=== PATIENT | male | born 1950 | race Caucasian/White ===

== ENCOUNTER → 2019-10-05 11:00 | Outpatient (BNVA) | payer MEDICARE, OTHER, SELFPAY | PROVIDERS: PCP Nurse Practitioner Family; Visit Provider Nurse Practitioner Family | DX: Z00.00 Encounter for general adult medical examination without abnormal findings (principal); I10 Essential (primary) hypertension | CPT/HCPCS: 80053; 80061; 82306; 82607; 85025 ==

== ENCOUNTER → 2020-01-04 11:33 | Outpatient (BNVA) | payer MEDICARE, OTHER, SELFPAY | PROVIDERS: PCP Nurse Practitioner Family; Visit Provider Nurse Practitioner Family | DX: L03.312 Cellulitis of back [any part except buttock and flank] (principal); W57.XXXA Bitten or stung by nonvenomous insect and other nonvenomous arthropods, initial encounter | CPT/HCPCS: 80053; 85025; 86618; 86666; 86757 ==

== ENCOUNTER → 2020-05-24 15:01 | Outpatient (BNVA) | payer MEDICARE, OTHER, SELFPAY | PROVIDERS: PCP Nurse Practitioner Family; Visit Provider Nurse Practitioner Family | DX: I10 Essential (primary) hypertension (principal); R53.83 Other fatigue; R53.82 Chronic fatigue, unspecified; Z12.5 Encounter for screening for malignant neoplasm of prostate; Z79.899 Other long term (current) drug therapy | CPT/HCPCS: 80053; 80061; 82306; 82607; 84443; 85025; G0103 ==

== ENCOUNTER → 2021-03-28 09:20 | Outpatient (BNVA) | payer MEDICARE, OTHER, SELFPAY | PROVIDERS: PCP Nurse Practitioner Family; Visit Provider Nurse Practitioner Family | DX: I10 Essential (primary) hypertension (principal); R53.82 Chronic fatigue, unspecified; Z12.5 Encounter for screening for malignant neoplasm of prostate | CPT/HCPCS: 80053; 80061; 82306; 82607; 84443; 85025 ==

== ENCOUNTER → 2021-12-14 11:50 | Outpatient (BNVA) | payer MEDICARE, OTHER, SELFPAY | PROVIDERS: PCP Nurse Practitioner Family; Visit Provider Family Medicine | DX: I10 Essential (primary) hypertension (principal); R53.83 Other fatigue; Z12.5 Encounter for screening for malignant neoplasm of prostate; Z79.899 Other long term (current) drug therapy; R53.82 Chronic fatigue, unspecified; Z00.00 Encounter for general adult medical examination without abnormal findings | CPT/HCPCS: 80053; 80061; 82306; 84443; 85025; G0103 ==

== ENCOUNTER 2023-04-19 13:03 | Emergency (ER) | payer MEDICARE, OTHER, SELFPAY ==
[2023-04-19 13:12] VITALS: BP 193/76; PULSE 83; RESP 18; TEMP 37; O2SAT 96; BMI 27.8
--- NOTE | 2023-04-19 13:24 | CTR_ITS ---
PROCEDURE INFORMATION: Exam: CT Cervical Spine Without Contrast Exam date and time: 04/19/2023 2:22 PM Age: 72 years old Clinical indication: Injury or trauma; Fall; Blunt trauma TECHNIQUE: Imaging protocol: Computed tomography of the cervical spine without contrast. Radiation optimization: All CT scans at this facility use at least one of these dose optimization techniques: automated exposure control; mA and/or kV adjustment per patient size (includes targeted exams where dose is matched to clinical indication); or iterative reconstruction. REPORTING DATA: Count of CT and Cardiac NM exams in prior 12 months: This patient has received 0 known CTs and 0 known cardiac nuclear medicine studies in the 12 months prior to the current study. COMPARISON: No relevant prior studies available. RADIATION DOSE METRICS: Total DLP (mGy-cm): 528.1 FINDINGS: Bones/joints: No acute fracture. Normal alignment. 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 Additional multilevel cervical spine degenerative changes with facet arthrosis contributing to moderate right osseous neural foraminal narrowing at C3-C4 and bilaterally at C4-C5. Lungs: Right apical calcified granuloma. Lung apices are otherwise clear. Thyroid: Subcentimeter left thyroid nodule requires no dedicated imaging follow-up. Vasculature: Mild atherosclerotic calcification. Soft tissues: Unremarkable. CT/CT cervical spin wo con* [id number] IMPRESSION: 1. No acute fracture or traumatic listhesis. 2. 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 COMMENTS: Consistent with the [employer]'s Incidental Findings Committee white paper (J Am Lubna Radiol 2015): In patients aged 35 years and older with an incidental thyroid nodule equal to or greater than 1.[address], MRI or extrathyroidal US, further evaluation with dedicated thyroid US is recommended for patients with normal life expectancy and without comorbidities. For smaller nodules without suspicious features, no further evaluation or follow up is recommended.
--- NOTE | 2023-04-19 13:24 | CTR_ITS ---
PROCEDURE INFORMATION: Exam: CT Chest With Contrast; Diagnostic Exam date and time: 04/19/2023 2:34 PM Age: 72 years old Clinical indication: Injury or trauma; Fall; Generalized; Blunt trauma (contusions or hematomas) TECHNIQUE: Imaging protocol: Diagnostic computed tomography of the chest with contrast. Radiation optimization: All CT scans at this facility use at least one of these dose optimization techniques: automated exposure control; mA and/or kV adjustment per patient size (includes targeted exams where dose is matched to clinical indication); or iterative reconstruction. Contrast material: OMNI 350; Contrast volume: 100 ml; Contrast route: INTRAVENOUS (IV); REPORTING DATA: Count of CT and Cardiac NM exams in prior 12 months: This patient has received 0 known CTs and 0 known cardiac nuclear medicine studies in the 12 months prior to the current study. COMPARISON: CT cervical spin wo con* [id number] 04/19/2023 2:22 PM RADIATION DOSE METRICS: Total DLP (mGy-cm): 1368.48 FINDINGS: Trachea: Expiratory phase imaging as evidenced by anterior bowing of the posterior tracheal membrane. Lungs: Dependent atelectasis. No consolidation. No mass. There is a 4 mm right middle lobe nodule on axial image 36 of series 4. Pleural spaces: Unremarkable. No pneumothorax. No pleural effusion. Heart: Unremarkable. No cardiomegaly. No pericardial effusion. Lymph nodes: Unremarkable. No enlarged lymph nodes. Vasculature: Mild systemic atherosclerotic calcification without aortic aneurysm. Diaphragm: Small hiatal hernia. Platelike left diaphragmatic hyperdensity may represent calcification or postsurgical change. Bones/joints: Minimally displaced acute right anterolateral 6th rib fracture. Degenerative changes along the spine. Soft tissues: Unremarkable. months. (Reference: Mumtaz) REFERENCES: Mumtaz Cody et al. Guidelines for Management of Incidental Pulmonary Nodules Detected on CT Images: From the Fleischner Society 2017. Radiology. 2017;284(1):228-243. PROCEDURE INFORMATION: Exam: CT Abdomen And Pelvis With Contrast Exam date and time: 04/19/2023 2:34 PM Age: 72 years old Clinical indication: Injury or trauma; Fall; Generalized; Blunt trauma (contusions or hematomas) TECHNIQUE: Imaging protocol: Computed tomography of the abdomen and pelvis with contrast. Radiation optimization: All CT scans at this facility use at least one of these dose optimization techniques: automated exposure control; mA and/or kV adjustment per patient size (includes targeted exams where dose is matched to clinical indication); or iterative reconstruction. Contrast material: OMNI 350; Contrast volume: 100 ml; Contrast route: INTRAVENOUS (IV); REPORTING DATA: Count of CT and Cardiac NM exams in prior 12 months: This patient has received 0 known CTs and 0 known cardiac nuclear medicine studies in the 12 months prior to the current study. COMPARISON: No relevant prior studies available. RADIATION DOSE METRICS: Total DLP (mGy-cm): 1368.48 FINDINGS: Liver: There is a 2.3 cm right liver laceration on axial image 24 of series 6. Subtle ill-defined heterogeneous hypoattenuating area within the right liver measuring 4.5 x 3.2 cm on axial image 21 of series 6 suggestive of developing hematoma. Gallbladder and bile ducts: Normal. No calcified stones. No ductal dilation. Pancreas: Normal without ductal dilatation. Spleen: Normal. Adrenal glands: Abnormal thickening of the right adrenal gland measuring approximately 3 cm in thickness with decreased density and mild surrounding blood products. Minimal residual normal-appearing adrenal gland present medially. Normal left adrenal gland. Kidneys and ureters: Normal. No hydronephrosis. Stomach and bowel: No dilatation. No mucosal thickening. Appendix: Normal. Intraperitoneal space: No free air or well organized fluid collection. Vasculature: Mild aortoiliac atherosclerotic calcification without abdominal aortic aneurysm. Lymph nodes: Unremarkable. No enlarged lymph nodes. Urinary bladder: Urinary bladder is unremarkable. Reproductive: Enlarged prostate gland measures 5.7 cm in transverse dimension and shows median lobe hypertrophy. Bones/joints: No acute fracture. Degenerative changes along the spine and sacroiliac joints. Soft tissues: Small to moderate bilateral fat containing inguinal hernias. CT/CT chest abdpel w/*[id number] IMPRESSION: 1. Minimally displaced acute right 6th rib fracture. 2. 4 mm right middle lobe pulmonary nodule. For patients at low risk (minimal or absent history of smoking and of other known risk factors), no routine follow-up is indicated. For patients at high risk (history of smoking or of other known risk factors), consider optional CT Chest at 12 IMPRESSION: 1. Grade 2 right liver injury with laceration and hematoma as above. 2. Right adrenal gland hematoma with mild surrounding blood products. Minimal residual normal appearing adrenal gland medially. 3. Additional chronic and incidental findings as above, to include prostatomegaly.
--- NOTE | 2023-04-19 13:24 | CTR_ITS ---
PROCEDURE INFORMATION: Exam: CT Head Without Contrast Exam date and time: 04/19/2023 2:22 PM Age: 72 years old Clinical indication: Injury or trauma; Fall; Blunt trauma (contusions or hematomas) TECHNIQUE: Imaging protocol: Computed tomography of the head without contrast. Radiation optimization: All CT scans at this facility use at least one of these dose optimization techniques: automated exposure control; mA and/or kV adjustment per patient size (includes targeted exams where dose is matched to clinical indication); or iterative reconstruction. REPORTING DATA: Count of CT and Cardiac NM exams in prior 12 months: This patient has received 0 known CTs and 0 known cardiac nuclear medicine studies in the 12 months prior to the current study. COMPARISON: No relevant prior studies available. RADIATION DOSE METRICS: Total DLP (mGy-cm): 949.4 FINDINGS: Brain: Normal volume for age. No hemorrhage. Unremarkable white matter. No mass effect. Cerebral ventricles: No ventriculomegaly. Paranasal sinuses: Mild pansinus mucosal thickening. No fluid levels. Mastoid air cells: Visualized mastoid air cells are well aerated. Bones/joints: Unremarkable. No acute fracture. Soft tissues: Unremarkable. CT/CT head wo con* [id number] IMPRESSION: 1. No acute intracranial findings. 2. Mild paranasal sinus disease.
--- NOTE | 2023-04-19 13:28 | ED_ITS ---
HPI - Fall General: Chief Complaint: Fall Stated Complaint: fall from ladder Time Seen by Provider: 04/19/23 13:23 Source: patient and family Mode of arrival: ambulatory History of Present Illness: 72-year-old male who was at home he was using a ladder he was found on the deck after having fallen off a ladder he has an abrasion to his forehead he is a very poor memory events he essentially cannot remember anything that aches transpired prior to coming here. Does not really remember anything since he got up this morning. He is aware of where he is at and who is with him some eyewear at the time but other circumstances are lost him at this point. Complaining some mild abdominal discomfort as well. He has abrasion on his forehead and some right- sided rib pain. He denies any pain in the extremities. Has a few abrasions on his left hand. Even with coaching and after having been told what happened he does not recall within a few minutes that he had fallen and that was why his family brought him to the emergency room today. He is not on any anticoagulants. complaint: fall Onset (ago): minute(s) Fall from: from height (distance) (ladder) Fall witnessed: no Place fall occurred: home Loss of consciousness: Unsure Prolonged down time: no Context: tripped/slipped Associated symptoms-after fall: Denies abdominal pain, chest pain or neck pain Review of Systems Const: Denies: fever(s) or chills Card: Denies: chest pain Resp: Denies: dyspnea GI: Denies: abdominal pain : Denies: dysuria, urinary frequency or urinary urgency Musc: Denies: neck pain or back pain Skin/Breast: Denies: rash PFSH ED PFSH: Medical History Hypertension Social History Smoking and tobacco/nicotine status: never used tobacco/nicotine Second hand smoke exposure: No Alcohol intake: never Substance/Drug Use: never Lives independently: Yes Household members: spouse Marital status: service: No Current occupational status: retired Current gender identity: Male Special yung needs: No Agree to transfusion: Yes Physical Exam Const: GENERAL APPEARANCE: cooperative and comfortable ORIENTATION/CONSCIOUSNESS: Yes awake, Yes oriented to person, Yes oriented to place and Yes oriented to time HENMT: COMMON NORMALS: normocephalic and hearing grossly normal bilaterally HEAD & SCALP: normocephalic Eye: OTHER: Superficial abrasion left forehead Resp: COMMON NORMALS: normal respiratory effort, No retractions, No use of accessory muscles and clear to auscultation bilaterally AUSCULTATION: clear to auscultation bilaterally Cardio: COMMON NORMALS: regular rate, regular rhythm and No murmurs present (Cardio) RATE: regular rate RHYTHM: regular rhythm GI: COMMON NORMALS: No hepatosplenomegaly present AUSCULTATION: Yes normoactive bowel sounds PALPATION: Yes Tenderness to palpation present (GI) Details: RUQ and Yes No hepatosplenomegaly present : COMMON NORMALS: Yes no CVA tenderness BLADDER/KIDNEY EXAM: Yes no CVA tenderness Back/Pelvis: COMMON NORMALS: no CVA tenderness Extremity: COMMON NORMALS: capillary refill normal, no clubbing, cyanosis or edema, no calf tenderness and no pedal edema OTHER: Abrasion right hand superficial Neuro: SENSORIUM/ORIENTATION: Yes oriented to person, Yes oriented to place and Yes oriented to time Skin: COMMON NORMALS: no rashes or lesions noted GENERAL SKIN EXAM: no rashes or lesions noted Course Vital Signs: Vital signs: Vital Signs Temperature 98.6 F 04/19/23 13:12 Pulse Rate 84 04/19/23 16:00 Respiratory Rate 16 04/19/23 16:00 Blood Pressure 155/81 04/19/23 16:00 Pulse Oximetry 98 04/19/23 16:00 Oxygen Delivery Me thod Room Air 04/19/23 13:12 MDM - Fall Medical Decision Making Fall with loss of consciousness and memory loss. Patient has no recollection of the events leading up to the fall or since the fall. He repeatedly asks questions regarding orientation and events. CT shows a right sixth rib fracture as ureteral hematoma and a developing liver hematoma with a laceration. We will transfer to trauma [facility] at [facility]. Patient to be transferred ER to ER. Medical Records I reviewed the patient's medical records. Lab Data I reviewed the patient's lab results. 04/19/23 13:54 04/19/23 13:54 Radiology Impressions Cervical Spine CT 04/19/23 13:24 IMPRESSION: 1. No acute fracture or traumatic listhesis. 2. 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 COMMENTS: Consistent with the [employer] [employer]'s Incidental Findings Committee white paper (J Am [employer]na Radiol 2015): In patients aged 35 years and older with an incidental thyroid nodule equal to or greater than 1.[address], MRI or extrathyroidal US, further evaluation with dedicated thyroid US is recommended for patients with normal life expectancy and without comorbidities. For smaller nodules without suspicious features, no further evaluation or follow up is recommended. Chest/Abdomen/Pelvis CT 04/19/23 13:24 IMPRESSION: 1. Minimally displaced acute right 6th rib fracture. 2. 4 mm right middle lobe pulmonary nodule. For patients at low risk (minimal or absent history of smoking and of other known risk factors), no routine follow-up is indicated. For patients at high risk (history of smoking or of other known risk factors), consider optional CT Chest at 12 IMPRESSION: 1. Grade 2 right liver injury with laceration and hematoma as above. 2. Right adrenal gland hematoma with mild surrounding blood products. Minimal residual normal appearing adrenal gland medially. 3. Additional chronic and incidental findings as above, to include prostatomegaly. ADDENDUM: 04/19/23 [id number] THIS REPORT CONTAINS FINDINGS THAT MAY BE CRITICAL TO PATIENT CARE. The findings were verbally communicated via telephone conference with Dr. Sosa at 3:13 PM CDT on 04/19/2023. The findings were acknowledged and understood. During discussion, correction was made to the liver injury grade which is actually grade 3, not grade 2, since there is more than [address] 04/19/23 13:24 IMPRESSION: 1. No acute intracranial findings. 2. Mild paranasal sinus disease. Laboratory Results WBC 14.18 10^3/uL (3.29-11.43) H 04/19/23 13:54 RBC 5.08 10^6/uL (3.85-5.65) 04/19/23 13:54 Hgb 15.20 g/dL (11.27-16.99) 04/19/23 13:54 Hct 45.3 % (37-53) 04/19/23 13:54 MCV 89.2 fl (82-101) 04/19/23 13:54 MCH 29.9 pg (27-33) 04/19/23 13:54 MCHC 33.6 g/dL (30-55) 04/19/23 13:54 RDW 12.8 % (12.1-15.1) 04/19/23 13:54 Plt Count 152 10^3/cmm (157-399) L 04/19/23 13:54 MPV 11.4 fL (7.4-10.4) H 04/19/23 13:54 Neut % (Auto) 73.3 % 04/19/23 13:54 Lymph % (Auto) 18.1 % 04/19/23 13:54 [place] % (Auto) 5.7 % 04/19/23 13:54 Eos % (Auto) 1.8 % 04/19/23 13:54 Baso % (Auto) 0.3 % 04/19/23 13:54 Neut # (Auto) 10.40 10^3/uL (1.8-7.7) H 04/19/23 13:54 Lymph # (Auto) 2.6 10^3/uL (0.8-4.8) 04/19/23 13:54 [place] # (Auto) 0.8 10^3/uL (0.2-0.9) 04/19/23 13:54 Eos # (Auto) 0.3 10^3/uL (0.0-0.8) 04/19/23 13:54 Baso # (Auto) 0.0 10^3/uL (0.0-0.1) 04/19/23 13:54 Nucleated RBC % (auto) 0 % 04/19/23 13:54 Nucleated RBCs # 0.0 /100WBC 04/19/23 13:54 Sodium 135 mmol/L (136-145) L 04/19/23 13:54 Potassium 3.5 mmol/L (3.5-5.1) 04/19/23 13:54 Chloride 98 mmol/L (98-107) 04/19/23 13:54 Carbon Dioxide 24 mmol/L (22-29) 04/19/23 13:54 Anion Gap 16.5 (5-19) 04/19/23 13:54 BUN 10 mg/dL (8-23) 04/19/23 13:54 Creatinine 0.9 mg/dL (0.7-1.2) 04/19/23 13:54 GFR Calculation Not Reportable 04/19/23 13:54 Glucose 180 mg/dL (65-115) H 04/19/23 13:54 Calculated Osmolality 284 mOsm/kg (285-295) L 04/19/23 13:54 Calcium 9.2 mg/dL (8.5-10.5) 04/19/23 13:54 Total Bilirubin 0.5 mg/dL (0.15-1.2) 04/19/23 13:54 AST 184 U/L (0-40) H 04/19/23 13:54 ALT 200 U/L (0-41) H 04/19/23 13:54 Alkaline Phosphatase 77 U/L (40-130) 04/19/23 13:54 Total Protein 7.1 g/dL (6.6-8.7) 04/19/23 13:54 Albumin 4.2 g/dL (3.5-5.2) 04/19/23 13:54 Globulin 2.9 g/dL (1.3-4.6) 04/19/23 13:54 Urine Color Straw (Yellow) 04/19/23 12:25 Urine Appearance Hazy (CLEAR) A 04/19/23 12:25 Urine pH 9 (5-7) H 04/19/23 12:25 Ur Specific [place] 1.020 (1.005-1.030) 04/19/23 12:25 Urine Protein Neg (Negative) 04/19/23 12:25 Urine Glucose (UA) Norm (Normal) 04/19/23 12:25 Urine Ketones Negative (Negative) 04/19/23 12:25 Urine Blood 2+ (Negative) H 04/19/23 12:25 Urine Nitrate Positive (Negative) H 04/19/23 12:25 Urine Bilirubin Neg (Negative) 04/19/23 12:25 Prot Sulfosalicylic Acd Negative (Negative) 04/19/23 12:25 Urine Urobilinogen Norm mg/dL (Negative) 04/19/23 12:25 Ur Leukocyte Esterase Negative (Negative) 04/19/23 12:25 Urine RBC Rare /hpf (0-2) 04/19/23 12:25 Urine WBC 5-10 /hpf (0-5) H 04/19/23 12:25 Ur Squamous Epith Cells None /hpf (0-5) 04/19/23 12:25 Amorphous Sediment 1+ /hpf 04/19/23 12:25 Urine Bacteria 4+ /hpf (NONE) H 04/19/23 12:25 All radiology interpretation(s) finalized by discharge Discharge Plan Discharge Patient Disposition: Xfer Short-Term Hosp Clinical Impression: Liver laceration, closed, Concussion with loss of consciousness, Hematoma of adrenal gland due to trauma, Right rib fracture, Fall Condition: Stable Referrals: Anaya Tong FNP [Primary Care Provider] - Coding Level of Care Code ED Bowling Teacher for Gautam King
[2023-04-19 14:24] LABS: Basophils % 0.3 %; Eosinophils # 0.3 10^3/uL (0.0-0.8); Eosinophils % 1.8 %; Hematocrit 45.3 % (37-53); Lymphocytes # 2.6 10^3/uL (0.8-4.8); Lymphocytes % 18.1 %; Mean Corpuscular HGB Conc 33.6 g/dL (30-55); Mean Corpuscular Hemoglobin 29.9 pg (27-33); Mean Corpuscular Volume 89.2 fl (82-101); Mean Platelet Volume 11.4 fL (7.4-10.4); Monocytes # 0.8 10^3/uL (0.2-0.9); Monocytes % 5.7 %; Neutrophils % 73.3 %; Nucleated Red Blood Cells % 0 %; Platelet Count 152 10^3/cmm (157-399); Red Blood Count 5.08 10^6/uL (3.85-5.65); Red Cell Distribution Width 12.8 % (12.1-15.1); White Blood Count 14.18 10^3/uL (3.29-11.43)
[2023-04-19 14:37] LABS: Alanine Aminotransferase 200 U/L (0-41); Albumin Level 4.2 g/dL (3.5-5.2); Alkaline Phosphatase 77 U/L (40-130); Anion Gap 16.5 (5-19); Aspartate Amino Transferase 184 U/L (0-40); Blood Urea Nitrogen 10 mg/dL (8-23); Calcium 9.2 mg/dL (8.5-10.5); Carbon Dioxide 24 mmol/L (22-29); Chloride 98 mmol/L (98-107); Globulin 2.9 g/dL (1.3-4.6); Glucose 180 mg/dL (65-115); Osmolality Calculated 284 mOsm/kg (285-295); Potassium 3.5 mmol/L (3.5-5.1); Sodium 135 mmol/L (136-145); Total Bilirubin 0.5 mg/dL (0.15-1.2); Total Protein 7.1 g/dL (6.6-8.7)
[2023-04-19] MEDS: iohexol 350 mg/mL 500 mL Btl (per mL) IV (14:39)
[2023-04-19 15:00] VITALS: BP 172/79; PULSE 87; RESP 16; O2SAT 99
[2023-04-19 15:30] VITALS: BP 173/85; PULSE 89; RESP 16; O2SAT 98
[2023-04-19 16:00] VITALS: BP 155/81; PULSE 84; RESP 16; O2SAT 98
[2023-04-19 16:02] LABS: Add Urine Microscopic? YES; Bilirubin Urine Neg (Negative); Blood Urine 2+ (Negative); Glucose Urine UA Norm (Normal); Ketones Urine Negative (Negative); Leukocyte Esterase Urine Negative (Negative); Nitrate Urine Positive (Negative); Protein Urine Neg (Negative); Sulfosalicylic Acid Urine Negative (Negative); Urine Appearance Hazy (CLEAR); Urine Color Straw (Yellow); Urobilinogen Urine Norm (Negative); pH Urine 9 (5-7)
[2023-04-19 16:03] LABS: Add Urine Culture? Yes; Amorphous Sediment Urine 1+ /hpf; Bacteria Urine 4+ /hpf; RBC Urine RARE /hpf (0-2)
[2023-04-19] MEDS: sodium chloride 0.9% 1,000 ML 100 ML IV (16:09)
== END 2023-04-19 17:14 | disposition short-term general hospital (02) ==
PROVIDERS: Emergency Provider Family Medicine; PCP Nurse Practitioner Family
DX: S06.0X9A Concussion with loss of consciousness of unspecified duration, initial encounter (principal); S37.812A Contusion of adrenal gland, initial encounter; S22.31XA Fracture of one rib, right side, initial encounter for closed fracture; S36.115A Moderate laceration of liver, initial encounter; I10 Essential (primary) hypertension; W11.XXXA Fall on and from ladder, initial encounter
CPT/HCPCS: 36415; 70450; 71260; 72125; 74177; 80053; 81001; 85025; 87077; 87086; 87186; 99285; J7030; Q9967

== ENCOUNTER → 2023-04-23 10:29 | Outpatient (BNVA) | payer MEDICARE, OTHER, SELFPAY | PROVIDERS: PCP Nurse Practitioner Family; Visit Provider Nurse Practitioner Family | DX: N39.0 Urinary tract infection, site not specified (principal) | CPT/HCPCS: 81003; 87077; 87086; 87184 ==

== ENCOUNTER 2024-01-30 11:46 | Outpatient (CLI) | payer MEDICARE, OTHER, SELFPAY ==
--- NOTE | 2024-01-30 11:50 | USCV_ITS ---
Homer Guzman Age: 73 Gender: M : 1950 Exam Date: 01/30/2024 12:08 Ordering Phys: Mela OchoaP Technologist: GEETHA [place] [facility] [place]ication: Rt LE Pain HISTORY: Lower extremity pain. PROCEDURES: Venous duplex imaging was performed in only the right lower extremity. The following venous structures were evaluated: common femoral vein, profunda vein, proximal portion of the greater saphenous vein, superficial femoral vein, and the popliteal vein. In addition, the posterior tibial and peroneal trunk were evaluated. Serial compression, augmentation maneuvers, and spectral Doppler flow evaluation were performed. FINDINGS: Age indeterminate DVT in Proximal FV to CFV, near occlusive. The remaining right lower extremity is negative. CONCLUSIONS Age indeterminate right DVT CFV and Sfv. Report called at time of exam. Dr. Sahara Spaulding DO (Electronically Signed) Final Date: 30 January 2024 12:30 S
== END 2024-01-30 11:47 | disposition home or self-care (01) ==
LOC: RAD 11:47
PROVIDERS: PCP Nurse Practitioner Family; Visit Provider Nurse Practitioner Family
DX: I82.411 Acute embolism and thrombosis of right femoral vein (principal)
CPT/HCPCS: 93971

== ENCOUNTER 2024-06-10 10:51 | Outpatient (CLI) | payer MEDICARE, OTHER, SELFPAY ==
--- NOTE | 2024-06-10 10:58 | USCV_ITS ---
Homer Guzman Age: 73 Gender: M : 1950 Exam Date: 06/10/2024 11:08 Ordering Phys: Katlin Smith APN Technologist: R Exam Location: [facility] [place] Indication: HISTORY: DVT. PROCEDURES: Venous duplex imaging was performed in only the right lower extremity. The following venous structures were evaluated: common femoral vein, profunda vein, proximal portion of the greater saphenous vein, superficial femoral vein, and the popliteal vein. In addition, the posterior tibial veins were evaluated. In addition, the posterior tibial and peroneal trunk were evaluated. FINDINGS: No evidence of DVT seen in any vessel visualized at this time. CONCLUSIONS No evidence of right lower extremity DVT. Dinh Walker MD (Electronically Signed) Final Date: 10 June 2024 14:11 S
== END 2024-06-10 10:52 | disposition home or self-care (01) ==
LOC: RAD 10:52
PROVIDERS: PCP Nurse Practitioner Family; Visit Provider Nurse Practitioner Family
DX: I82.401 Acute embolism and thrombosis of unspecified deep veins of right lower extremity (principal)
CPT/HCPCS: 93971